=== PATIENT | female | born 1945 | race Caucasian/White ===

== ENCOUNTER 2018-06-24 11:43 | Emergency (ER) | payer MEDICARE ==
[~2018-06-24 11:43] MED LIST: AMOX-362 PO; BUP150 PO; CITA10SO7 PO; DIAZ-308 PO; HYDR-653 PO; LOR5 PO; NOR PO; ONDA-2 PO; ORP100 PO; PANT40TA13 PO; PRA20 FT; SER50 PO
[2018-06-24] MEDS ORDERED: CARB100T5 PO (11:55)
[2018-06-24] MEDS ORDERED: PANT40TA65 PO (11:55)
[2018-06-24] MEDS ORDERED: SERT-1 PO (11:55)
--- NOTE | 2018-06-24 11:57 | ER Report ---
History and Physical Time Seen By MD: 11:55 Hx. of Stated Complaint: fall off treadmill onto knees, held on with L arm, limited rom and pain inh L shoulder HPI/ROS CHIEF COMPLAINT: Left shoulder pain HISTORY OF PRESENT ILLNESS: 73-year-old female walking on the treadmill slipped and fell No head or neck trauma no loss of consciousness pain in the anterior portion left shoulder REVIEW OF SYSTEMS: Respiratory: No cough, no dyspnea. Cardiovascular: No chest pain, no palpitations. Gastrointestinal: No vomiting, no abdominal pain. Musculoskeletal: Left shoulder pain Remainder of the 14 system rev: Yes Allergies: Coded Allergies: No Known Allergies (Verified Allergy, Mild, 01/21/15) Home Meds Reported Medications Sertraline Hcl (ZOLOFT) 50 Mg Tablet, 1 TAB PO QDAY, TAB 06/24/18 Pantoprazole Sodium (PANTOPRAZOLE SODIUM) 40 Mg Tablet.dr, 40 MG PO QDAY, TAB.SR 06/24/18 Carbamazepine (TEGRETOL XR) 100 Mg Tab.er.12h, 100 MG PO 06/24/18 Orphenadrine Citrate (ORPHENADRINE CITRATE) 100 Mg Tabsr, 100 MG PO TID PRN for PAIN 01/21/15 Discontinued Scripts Amoxicillin (AMOXICILLIN) 500 Mg Capsule, 1 CAP PO Q8H, #21 CAPSULE Prov:HENRY DELACRUZ 01/21/15 Hydrocodone Bit/Acetaminophen (NORCO 5-325 TABLET) 1 Each Tablet, 1 EACH PO Q4- 6H PRN for PAIN, #20 TAB Prov:HENRY DELACRUZ 01/21/15 Reviewed Nurses Notes: Yes Old Medical Records Reviewed: Yes Hx Smoking: No Smoking Status: Former Smoker Hx Substance Use Disorder: No Hx Alcohol Use: Yes (2 glasses of wine daily) Constitutional Vital Sign - Last 24 Hours 06/24/18 11:49 Temp 97.8 Pulse 90 Resp 16 B/P (MAP) 183/109 Pulse Ox 92 O2 Delivery Room Air Physical Exam General appearance: Alert no distress. Respiratory: Chest is non tender, lungs are clear to auscultation. Cardiac: Regular rate and rhythm [ ] Left shoulder examination demonstrates some mild tenderness to palpation anterior portion of the collateral head pain with abduction and flexion pain with rotation external and internal neurovascularly intact otherwise unremarkable DIFFERENTIAL DIAGNOSIS: After history and physical exam differential diagnosis was considered for shoulder fracture contusion separation Medical Decision Making ED Course/Re-evaluation ED Course ED course medical decision examining Female follow-up treadmill on her left shoulder x-rays are negative for fracture dislocation subluxation diagnose contusion sling and swath 2-3 days anti- inflammatories and ice and follow-up with primary care as needed Decision to Disposition Date: Jun 24, 2018 Decision to Disposition Time: 13:00 Depart Departure Latest Vital Signs Vital Signs Date Time Temp Pulse Resp B/P (MAP) Pulse Ox O2 Delivery O2 Flow Rate FiO2 06/24/18 11:49 97.8 90 16 183/109 92 Room Air Impression: Primary Impression: Contusion of shoulder Condition: Improved Disposition: HOME OR SELF-CARE Referrals: JONI ROBERTS DO (PCP) 5 Days Patient Instructions: Contusion in Adults (DC) SCOTT MCKINLEY MD Jun 24, 2018 11:57
--- NOTE | 2018-06-24 12:57 | RADIOLOGY IMAGING REPORT ---
FACILITY: [facility] PATIENT NAME: Juju Amaro : 1945 MR: [id number] V: [id number] EXAM DATE: ORDERING PHYSICIAN: SCOTT MCKINLEY TECHNOLOGIST: Location: [facility] [place] Patient: Juju Amaro : 1945 Visit/Account:[id number] Date of Sevice: 06/24/2018 SHOULDER MIN 2 VIEWS LEFT Indication: Pain after fall, fall Comparison: Unavailable Findings: There is no acute fracture-dislocation of the left glenohumeral joint. Limited views of the left upper lung zone are unremarkable. Visualized left acromioclavicular joint is unremarkable. IMPRESSION: 1. No acute osseous abnormality left shoulder. Report Dictated By: Brian Tripp at 06/24/2018 12:52 PM Report E-Signed By: Brian Tripp at 06/24/2018 12:53 PM WSN:[id number]
[2018-06-24 13:00] VITALS: BP 183/94
== END 2018-06-24 13:12 | disposition home or self-care (01) ==
LOC: ER 12:22
DX: S40.012A Contusion of left shoulder, initial encounter (principal)
CPT/HCPCS: 73030; 99283; A4565